=== PATIENT | female | born 1960 | race Caucasian/White ===

== ENCOUNTER 2024-10-16 08:35 | Day surgery (SDC) | payer MEDICARE ==
[2024-10-16] MEDS ORDERED: Lactated Ringers 1,000 ML IV ONE (08:50)
[2024-10-16] MEDS: TETRACAINE 0.5% STERI-UNIT SOL OP ONE ×2 (09:33→10:54)
[2024-10-16] MEDS: Ak-Dilate OPHTHALMIC*** 0.71 ML, Cyclogyl 1% OPHTH SOL 0.71 ML, GATIFLOXACIN 0.5% OPHTH... OP SCH (09:36)
[2024-10-16] MEDS: Lactated Ringers 1,000 ML IV SCH (09:38)
[2024-10-16] MEDS ORDERED: BETADINE 5% OPHTHALMIC 30 ML OP NR (11:00)
[2024-10-16] MEDS ORDERED: DEXTENZA OP NR ×2 (11:00)
[2024-10-16] MEDS ORDERED: DEXMEDETOMIDINE 80 MCG/20ML-NS IV NR (11:00)
[2024-10-16] MEDS ORDERED: Zofran 4 MG/2 ML VIAL IV PRN (11:00)
[2024-10-16] MEDS ORDERED: Epinephrine Preservative Free 1 MG/ML INTRAOP NR (11:00)
[2024-10-16] MEDS ORDERED: ACETAZOLAMIDE 250 MG TABLET PO ONE (11:00)
[2024-10-16] MEDS ORDERED: propofoL IV ONE ×3 (12:23→12:54)
[2024-10-16 13:05] VITALS: RESP 16
[2024-10-16 13:17] VITALS: BP 125/85; PULSE 86; O2SAT 93
[2024-10-16 13:29] VITALS: TEMP 97.1
== END 2024-10-16 13:25 | disposition home or self-care (01) ==
LOC: SDC 08:35
PROVIDERS: ATTEND Ophthalmology
DX: H25.812 Combined forms of age-related cataract, left eye (principal); E11.9 Type 2 diabetes mellitus without complications
CPT/HCPCS: 82947; C1780; J0171; J1096; J2704; A9270-GY